=== PATIENT | female | born 1985 | race Caucasian/White ===

== ENCOUNTER → 2019-05-24 | Outpatient (CLI) | payer BC ==
--- NOTE | 2019-05-24 16:36 | RAD ---
Examination: Obstetric ultrasound less than 14 weeks HISTORY: History of spotting COMPARISON: None available FINDINGS: The uterus measures 16.5 x 8.0 x 5.5 cm. The right ovary measures 3.9 x 2.7 x 2.5 cm. The left ovary measures 3.5 x 3.3 x 2.4 cm. Intrauterine gestational sac identified. Single living intrauterine identified with heart rate of 155 bpm. The crown-rump length measures 6.4 cm corresponding to 12 weeks and 6 days. LMP 02/23/2019. Clinical age 12 weeks and 6 days with estimated date of delivery 11/30/2019. Ultrasound age is 13 weeks and 1 day with estimated delivery date of delivery by ultrasound 11/28/2019. Biparietal diameter measures 2.1 cm corresponding to 13 weeks and 3 days. Head circumference measures 8.4 cm corresponding to 13 weeks and 5 days. Abdominal circumference measures 6.5 cm corresponding 13 weeks and 1 day. Femur length measures 0.9 cm corresponding 12 weeks and 6 days. The amniotic fluid is within normal limits. Placental location is in the anterior wall. IMPRESSION: Single living intrauterine with heart rate of 155 bpm. Electronically signed by: Jhon Tenorio MD (05/24/2019 4:33 PM) [id number]
== END | disposition home or self-care (01) ==
LOC: US 12:50
PROVIDERS: ATTEND Obstetrics & Gynecology
DX: O26.851 Spotting complicating pregnancy, first trimester (principal); Z3A.13 13 weeks gestation of pregnancy
CPT/HCPCS: 76801